=== PATIENT | female | born 1975 | race Caucasian/White ===

== ENCOUNTER 2021-10-26 12:52 | Emergency (ER) | payer OTHER, SELFPAY ==
[2021-10-26 12:53] VITALS: BP 188/110; PULSE 95; RESP 18; TEMP 36.2; O2SAT 100
[2021-10-26 13:12] VITALS: BP 183/115; PULSE 85; RESP 20; O2SAT 100
[2021-10-26 13:15] VITALS: BP 173/99; PULSE 91; RESP 21; O2SAT 100
[2021-10-26 13:30] VITALS: BP 173/102; PULSE 81; RESP 15; O2SAT 99
--- NOTE | 2021-10-26 14:28 | ECG_ITS ---
Measurements Intervals [place] Rate: 70 P: 50 SC: 149 QRS: 44 QRSD: 97 T: 37 QT: 382 QTc: 414 Interpretive Statements SINUS RHYTHM WITH SINUS ARRHYTHMIA NORMAL ECG NO PREVIOUS ECG AVAILABLE FOR COMPARISON Electronically Signed On 10-26-2021 17:51:54 CDT by Miller Allen D.O.
--- NOTE | 2021-10-26 14:29 | ED.GENADULT ---
HPI - General Adult General Chief complaint: Recheck/Abnormal Lab/Rx Stated complaint: HTN Time Seen by Provider: 10/26/21 13:00 Source: patient Mode of arrival: ambulatory Limitations: no limitations History of Present Illness HPI narrative: Patient is a 46 y/o female who presents to the ED with c/o high blood pressure. Patient reports a history of hypertension for which she takes carvedilol and was recently prescribed hydrochlorothiazide. She states over the last few days she has been using oil of oregano for her allergies. She took her blood pressure today and noted to be elevated in the 170s systolic. She then became panicked about this. She does note a history of anxiety. Her blood pressure got up to 188 systolic before she decided to come in. She did notify her primary care doctor's office and was advised to take the hydrochlorothiazide. Patient had not previously started this. BP upon arrival 188/110. Patient is otherwise asymptomatic. She denies any fever, vision changes, headache, dizziness, chest pain, difficulty breathing, abdominal pain, nausea, vomiting. Related Data Home Medications Medication Instructions Recorded Confirmed albuterol sulfate 90 mcg/actuation inhalation 10/26/21 aerosol inhaler carvedilol 12.5 mg tablet mg 10/26/21 dexlansoprazole 60 mg mg 10/26/21 capsule,biphase delayed release hydrochlorothiazide 25 mg tablet mg 10/26/21 Allergies Allergy/AdvReac Type Severity Reaction Status Date / Time codeine Allergy Mild Fainting Verified 10/26/21 13:03 hydrocodone Allergy Mild Fainting Verified 10/26/21 13:03 moxifloxacin Allergy Mild Fainting Verified 10/26/21 13:03 Review of Systems Review of Systems: CONSTITUTIONAL: Denies fever, chills, or sweats. EYES: Denies visual changes. CARDIOVASCULAR: Denies chest pain, palpitations. RESPIRATORY: Denies cough or dyspnea. GASTROINTESTINAL: Denies abdominal pain, nausea, vomiting. GENITOURINARY: Denies dysuria or hematuria. NEUROLOGIC: Denies headache, dizziness, numbness, or weakness. PSYCHIATRIC: Reports anxiety. All systems reviewed & are unremarkable except as noted in HPI and below PMFSH Past Medical History Medical History (Updated 10/27/21 @ 00:01 by Background Daemon) Anxiety Asthma GERD (gastroesophageal reflux disease) HTN (hypertension) Surgical History Surgical History (Updated 10/26/21 @ 19:01 by Cele Hooker PA-C) No pertinent past surgical history Social History Social History (Updated 10/26/21 @ 19:02 by Cele Hooker PA-C) Smoking status: Never smoker Exam Narrative: GENERAL: Well appearing, obese, non-toxic, in no acute distress. HEAD: Normocephalic, atraumatic. EYES: PERRL/EOMI, conjunctivae clear bilaterally. NECK: Supple. No adenopathy, no masses. RESPIRATORY: Airway patent, respirations nonlabored. Clear to auscultation bilaterally, no rales, rhonchi, wheezing. CARDIOVASCULAR: Regular rate and rhythm without murmurs, rubs, or gallops. Peripheral pulses 2+ and equal bilaterally. MUSCULOSKELETAL: Moves all extremities. Strength/ROM intact without gross deformities. SKIN: Warm, dry, normal color. No rashes. NEURO: A&O X3. Speech clear. Cranial nerves II-XII grossly intact. Steady gait. No ataxic movements. PSYCHIATRIC: Anxious. Normal interaction. Course Vital Signs Vital signs: Vital Signs Temperature 97.2 F L 10/26/21 12:53 Pulse Rate 95 10/26/21 12:53 Respiratory Rate 18 10/26/21 12:53 Blood Pressure 188/110 H 10/26/21 12:53 Pulse Oximetry 100 10/26/21 12:53 Oxygen Delivery Room Air 10/26/21 12:53 Temperature 97.2 F L 10/26/21 12:53 Pulse Rate 85 10/26/21 17:41 Respiratory Rate 18 10/26/21 17:41 Blood Pressure 163/97 H 10/26/21 17:41 Pulse Oximetry 99 10/26/21 17:41 Oxygen Delivery Room Air 10/26/21 12:53 Medical Decision Making MDM Narrative Medical decision making narrative: Patient presented to ED with elevated blood p
[2021-10-26 15:15] LABS: Basophils Absolute Auto 0.1 K/mm3 (0.0-0.1); Basophils Percent Auto 0.5 % (0.2-1.2); Eosinophils Absolute Auto 0.2 K/mm3 (0-0.3); Eosinophils Percent Auto 1.1 % (0-4.4); Hematocrit 46.8 % (37.0-47.0); Hemoglobin 16.1 g/dL (12.0-15.0); Immature Granulocyte Absolute 0.07 K/mm3 (0.00-0.031); Immature Granulocyte Percent A 0.5 % (0-0.5); Lymphocytes Absolute Auto 2.37 K/mm3 (0.9-3.2); Lymphocytes Percent Auto 15.6 % (18.3-44.2); Mean Corpuscular HGB Conc 34.4 g/dl (32-36); Mean Corpuscular Hemoglobin 31.8 pg (26-34); Mean Corpuscular Volume 92.5 fl (80-100); Mean Platelet Volume 10.5 fl (7.4-10.4); Monocytes Absolute Auto 0.6 K/mm3 (0.1-0.6); Monocytes Percent Auto 3.9 % (2.6-8.5); Neutrophils Absolute Auto 11.9 K/mm3 (1.3-6.7); Neutrophils Percent Auto 78.4 % (45.5-73.1); Platelet Count Result 351 k/mm3 (150-375); Red Blood Count 5.06 M/mm3 (4.2-5.4); Red Cell Distribution Width 13.2 % (11.5-14.5); White Blood Count 15.2 K/mm3 (4.5-10.0)
[2021-10-26 15:24] LABS: Alanine Aminotransferase 21 U/L (6-35); Albumin Level 4.4 g/dL (3.5-5.1); Alkaline Phosphatase 186 U/L (38-126); Anion Gap 10 mmol/L (8-16); Appearance Urine Clear (Clear); Aspartate Amino Transferase 18 U/L (14-36); Bilirubin Urine Negative (Negative); Bilirubin,Total 0.5 mg/dL (0.2-1.3); Blood Urea Nitrogen 8 mg/dL (7-17); Blood Urine Negative (Negative); Calcium 9.5 mg/dL (8.4-10.2); Carbon Dioxide 25 mmol/L (22-30); Chloride 104 mmol/L (98-107); Color Urine Yellow (Yellow); Estimated CRCL calculation 106 ml/min; Estimated Glomerular Filt Rate > 60; Glucose 122 mg/dL (65-110); Glucose Urine UA Negative (Negative); Ketones Urine Negative (Negative); Leukocyte Esterase Ur Negative LEU/UL (Negative); Nitrate Urine Negative (Negative); Potassium 3.9 mmol/L (3.4-5.0); Protein Urine Negative (Negative); Sodium 139 mmol/L (137-145); Urobilinogen Urine 0.2 mg/dL (<2.0)
[2021-10-26 15:25] LABS: Mucus Urine Rare /lpf; RBC Urine 0-2 /hpf (0-2); Squamous Epithelial Cell Urine Few /hpf (Few); WBC Urine 0-3 /hpf
[2021-10-26] MEDS: SODIUM CHLORIDE 0.9% IV 1,000 ML 999 ML IV CONT (15:31)
[2021-10-26 15:36] LABS: Troponin I < 0.012 ng/mL (0.000-0.034)
[2021-10-26 15:38] LABS: Add Urine Microscopic? NO
[2021-10-26] MEDS: hydrALAZINE HCL 20 MG/ML VIAL 10 MG IV PUSH (17:07)
[2021-10-26 17:09] VITALS: BP 174/105; PULSE 93; RESP 21; O2SAT 94
[2021-10-26 17:41] VITALS: BP 163/97; PULSE 85; RESP 18; O2SAT 99
== END 2021-10-26 17:50 | disposition home or self-care (01) ==
PROVIDERS: Physician Assistant; Emergency Provider General Practice; PCP Physician Assistant
DX: I16.0 Hypertensive urgency (principal); I10 Essential (primary) hypertension; J45.909 Unspecified asthma, uncomplicated; K21.9 Gastro-esophageal reflux disease without esophagitis; F41.9 Anxiety disorder, unspecified; Z79.51 Long term (current) use of inhaled steroids
CPT/HCPCS: 36415; 80053; 81003; 84484; 85025; 93005; 96361; 96374; 99284; J0360; J7030